=== PATIENT | female | born 2000 | race Caucasian/White ===

== ENCOUNTER 2022-03-06 17:24 | Emergency (ER) | payer OTHER, SELFPAY ==
[2022-03-06 17:26] VITALS: BP 107/74; PULSE 78; RESP 16; TEMP 36.6; O2SAT 99; BMI 19.7
[2022-03-06 18:11] LABS: Color, Urine Yellow (Yellow); Glucose, Dipstick Normal (Normal); Ketone-Dipstick Negative (Negative); Leukocyte Esterase-Dipstick Negative /ul (Negative); Nitrite-Dipstick Negative (Negative); Occult Blood-Urine 250 /ul (Negative); Protein-Dipstick Negative (Negative); Urine Bilirubin Dipstick Negative (Negative); Urine Clarity Clear (Clear); Urine Urobilinogen Normal (Normal)
--- NOTE | 2022-03-06 23:05 | CT_ITS ---
EXAM: CT ABDOMEN AND PELVIS WITHOUT INTRAVENOUS CONTRAST CLINICAL INDICATION: Pain TECHNIQUE: Helically acquired images were obtained of the abdomen and pelvis without intravenous contrast. This CT exam was performed using one or more of the following dose reduction techniques: automated exposure control, adjustment of the mA and/or kV according to patient size, and/or use of iterative reconstruction technique. This report was created using [employer] report generation technology. COMPARISON: None. FINDINGS: LOWER THORAX: Unremarkable. Lung bases are clear. No cardiomegaly. No significant pericardial effusion. ABDOMEN: LIVER: Unremarkable. Homogeneous. GALLBLADDER AND BILE DUCTS: Unremarkable. No calcified gallstones. No gallbladder distention or wall edema. No intra- or extrahepatic biliary ductal dilation. PANCREAS: Unremarkable. No focal cystic mass. SPLEEN: Unremarkable. Normal size without focal cystic or solid mass. ADRENALS: Unremarkable. No nodules. KIDNEYS AND URETERS: Unremarkable. Normal renal size and position. No hydronephrosis. STOMACH AND BOWEL: Unremarkable. No stomach or bowel distention. No focal inflammatory change. PELVIS: APPENDIX: The appendix is normal. BLADDER: Unremarkable. REPRODUCTIVE: Possible left ovarian cyst measuring up to 2.8 cm. ABDOMEN and PELVIS: INTRAPERITONEAL SPACE: Unremarkable. No ascites or other fluid collection. No free air. BONES/JOINTS: Unremarkable. No suspicious lytic or blastic abnormality. SOFT TISSUES: Unremarkable. No discrete abdominal or pelvic wall hernia. VASCULATURE: Unremarkable. Abdominal aorta is non-dilated. LYMPH NODES: Unremarkable. No enlarged lymph nodes. CT/Abdomen/Pelvis without Cont IMPRESSION: Possible left ovarian cyst measuring up to 2.8 cm. Otherwise unremarkable noncontrast CT of the abdomen/pelvis. Electronically Signed: Jj Richardson MD at 0:50 EST ,
[2022-03-06 23:12] LABS: Mucous, Urine 0 SEEN /hpf (<or=2+); Red Blood Cells-Urine 0 SEEN /hpf (0-5)
[2022-03-06] MEDS: 0.9% Normal Saline 1,000 ML 1000 ML IV (23:19)
[2022-03-06] MEDS: Ondansetron 4 MG/2 ML Vial IV (23:19)
[2022-03-06 23:24] VITALS: BP 115/70; PULSE 85; RESP 15; O2SAT 98
[2022-03-06 23:26] LABS: Absolute Neutrophil Count 14.2 X10^3/uL (2.0-7.7); Basophil# 0.04 X10^3/uL; Basophil% 0.2 % (0-1); Eosinophil# 0.02 X10^3/uL; Eosinophils% 0.1 % (0-5); Hematocrit 37.9 % (37-47); Hemoglobin 12.3 g/dL (12.0-15.0); Lymphocyte % 7.6 % (19-41); Mean Corp Hgb Conc 32.5 g/dL (32-36); Mean Corpuscular Hgb 29.7 pg (27.0-32.0); Mean Corpuscular Volume 91.5 fL (81-99); Mean Platelet Vol. 10.2 fl (6.2-12.0); Monocyte# 1.37 X10^3/uL; Monocyte% 8.1 % (0-10); NRBC Flagged by Analyzer 0 % (0-5); Neutrophil # 14.16 X10^3/uL (2.7-7.7); Neutrophil % 83.4 % (47-70); Platelet Count 275 K/mm3 (150-450); RBC Distribution Width CV 12.3 % (11.6-14.6); RBC Distribution Width SD 41.2 fl (35.1-43.9); Red Blood Count 4.14 M/mm3 (4.2-5.4)
[2022-03-06 23:28] LABS: White Blood Cells 0-5 SEEN /hpf (0-5)
[2022-03-06 23:29] LABS: Bacteria RARE /hpf (None Seen); Squamous Epithelial Cells - UA 0-5 SEEN /hpf (5-10)
--- NOTE | 2022-03-06 23:32 | ED.VIS.GI ---
HPI HPI - GI History of Present Illness Chief Complaint: Nausea/Vomiting Informant: patient Abdominal Pain/Flank Pain Onset: Today Context: Sudden Onset Timing: Continuous Quality: Cramping Location: Diffuse Worsened by: Movement and - (Ambulation) Relieved by: Nothing Nausea/Vomiting/Emesis GI Symptom: Positive for Nausea; Negative for Vomiting Diarrhea/Melena/Hematochezia GI Symptom: Negative for Diarrhea, Melena or Hematochezia Associated Symptoms Associated Symptoms: Positive for Dysuria and Frequency Narrative Narrative: Patient presents with abdominal pain that began earlier this morning. Patient states the pain woke her up out of sleep. Patient states it has been constant all day. Patient describes it as cramping. Patient states it started in the lower abdomen and pelvic area. Patient states now it is diffuse. Patient states it is worse with ambulation and with movement. Patient states it is also worse with any coughing or sneezing. Patient admits to nausea but denies any vomiting. Patient denies any diarrhea, melena, or hematochezia. Patient does admit to some dysuria and urinary frequency. Patient states her last menstrual period was approximately 26 days ago. [facility] Medical History Anxiety Home Medications naproxen 500 mg tablet 500 mg PO BID PRN #20 tabs 03/07/22 [Rx Last Taken Unknown] Allergy/AdvReac Type Severity Reaction Status Date / Time No Known Allergies Allergy Verified 03/06/22 17:25 Surgical History no surgical history no surgical history Social History Smoking Status: Never smoker ROS ROS ED Constitutional Constitutional ED: Reports fever(s) and subjective; Denies chills Eyes Eyes: Denies blurry vision or change in vision ENT ENT ED: Denies rhinorrhea or sore throat Cardiovascular Cardiovascular: Reports chest pain; Denies palpitations Respiratory/Chest Respiratory/Chest: Denies cough or dyspnea Gastrointestinal Gastrointestinal: Denies nausea or vomiting Genitourinary Genitourinary ED: Denies dysuria or hematuria Musculoskeletal Musculoskeletal: Reports back pain; Denies neck pain Integumentary Denies abscess or rash Neurologic Neurologic: Denies headache(s) or weakness Allergic/Immunologic Allergic/Immunologic ED: Denies mouth swelling or urticaria EXAM Physical Exam Const Vital Signs: 03/06/22 17:26 03/06/22 23:24 Temperature 97.8 F Temperature Source Temporal Pulse Rate 78 85 Respiratory Rate 16 15 Blood Pressure 107/74 115/70 Blood Pressure Mean 85 85 Pulse Ox 99 98 Oxygen Delivery Method Room Air Room Air Positive well nourished and well developed General Appearance ED: well developed HEENT Reports moist mucous membranes Neck supple and no JVD Resp normal respiratory effort and clear to auscultation bilaterally Cardio regular rate, regular rhythm and no murmurs GI normal to inspection, nondistended, normoactive bowel sounds Palpation: soft and tender epigastric, LLQ, RLQ, LUQ, RUQ, periumbilical and suprapubic; Negative for guarding or rebound tenderness present Extremity normal to inspection General Extremety ED: Negative for edema or tenderness General Extremity: Negative for edema Neuro oriented x3, CN's II-XII intact bilaterally and no sensory deficits noted Sensorium / Orientation: alert Motor Exam: strength 5/5 throughout Psych mental status grossly normal Skin no rashes or lesions noted MDM MDM MDM Narrative Medical decision making narrative: Patient was given IV fluids and Zofran here. CBC was reviewed and does show a leukocytosis of 17.0. Hemoglobin and hematocrit are stable. Comprehensive metabolic profile was obtained and was reviewed. Total bilirubin was slightly elevated at 1.2. Glucose was slightly elevated at 126. The remainder was within normal limits. Urinalysis does not show any evidence of urinary tract infection or hematuria. Serum hCG was obtained and was negative. CT scan of the abdomen pelvis was obtained. There is a 2.8 cm left ovarian cyst. There is no acute abnormality. This was interpreted by the radiologist. I also reviewed the scan and agree with the radiologist. Patient was advised of her findings. Patient was given a prescription for Naprosyn. Patient was instructed to follow-up with her [employer] in 5 to 7 days. Patient understood and was agreeable with the plan. All questions were answered. Lab Data Attestation: I reviewed the patient's lab results. Labs: Laboratory Results - last 24 hr 03/06/22 03/06/22 03/06/22 17:45 23:21 23:21 WBC 17.0 H RBC 4.14 L Hgb 12.3 Hct 37.9 MCV 91.5 MCH 29.7 MCHC 32.5 RDW Std Deviation 41.2 RDW Coeff of Richardson 12.3 Plt Count 275 MPV 10.2 Immature Gran % (Auto) 0.600 Neut % (Auto) 83.4 H Lymph % (Auto) 7.6 L [place] % (Auto) 8.1 Eos % (Auto) 0.1 Baso % (Auto) 0.2 Absolute Neuts (auto) 14.2 H Absolute Lymphs (auto) 1.30 Nucleated RBC % 0 Sodium 137 Potassium 3.6 Chloride 105 Carbon Dioxide 27.0 Anion Gap 5 BUN 9 Creatinine 0.69 Estim Creat Clear Calc 105.31 Est GFR (MDRD) Af Amer 135 Est GFR (MDRD) Non-Af 112 BUN/Creatinine Ratio 13.0 Glucose 126 H Calcium 8.9 Total Bilirubin 1.20 H AST 13 L ALT 15 Alkaline Phosphatase 78 Total Protein 7.0 Albumin 3.6 Globulin 3.4 Albumin/Globulin Ratio 1.1 Serum , Qual Urine Color Yellow Urine Clarity Clear Urine pH 7.0 Ur Specific [place] 1.010 Urine Protein Negative Urine Glucose (UA) Normal Urine Ketones Negative Urine Occult Blood 250 H Urine Nitrite Negative Urine Bilirubin Negative Urine Urobilinogen Normal Ur Leukocyte Esterase Negative Urine RBC 0 SEEN Urine WBC 0-5 SEEN Ur Squamous Epith Cells 0-5 SEEN Urine Bacteria RARE Urine Mucus 0 SEEN 03/06/22 23:21 WBC RBC Hgb Hct MCV MCH MCHC RDW Std Deviation RDW Coeff of Richardson Plt Count MPV Immature Gran % (Auto) Neut % (Auto) Lymph % (Auto) [place] % (Auto) Eos % (Auto) Baso % (Auto) Absolute Neuts (auto) Absolute Lymphs (auto) Nucleated RBC % Sodium Potassium Chloride Carbon Dioxide Anion Gap BUN Creatinine Estim Creat Clear Calc Est GFR (MDRD) Af Amer Est GFR (MDRD) Non-Af BUN/Creatinine Ratio Glucose Calcium Total Bilirubin AST ALT Alkaline Phosphatase Total Protein Albumin Globulin Albumin/Globulin Ratio Serum , Qual NEGATIVE Urine Color Urine Clarity Urine pH Ur Specific [place] Urine Protein Urine Glucose (UA) Urine Ketones Urine Occult Blood Urine Nitrite Urine Bilirubin Urine Urobilinogen Ur Leukocyte Esterase Urine RBC Urine WBC Ur Squamous Epith Cells Urine Bacteria Urine Mucus Radiography Diagnostic Testing: Clinical Impression(s) from Imaging Studies Abdomen/Pelvis CT 03/06/22 23:05 IMPRESSION: Possible left ovarian cyst measuring up to 2.8 cm. Otherwise unremarkable noncontrast CT of the abdomen/pelvis. Electronically Signed: Jj Richardson MD at 0:50 EST , Discharge Plan Triage Chief Complaint: Nausea/Vomiting ED Provider: Sanya Rivers Dx/Rx/DC Orders Clinical Impression: Cyst of left ovary, Abdominal pain Instructions: ED Abdominal Pain Unkn Cause Fem, ED Ovarian Cyst Prescriptions: New naproxen 500 MG tablet 500 mg PO BID PRN Qty: 20 0RF Primary Care Provider: Nakia Hill Referrals: Nakia Hill MD [Primary Care Provider] - 5-7 Days Pavithra Ponce NP, OFFICE ASSOCIATE[facility] [Non-Staff] - 5-7 Days Disposition Disposition: Home, Self Care
[2022-03-06 23:40] LABS: Internal QC Validated? YES +Cl - CLEAR BKGD; Pregnancy, Serum, hCG Quali. NEGATIVE Negative
[2022-03-06 23:43] LABS: ALB/GLOB Ratio 1.1 RATIO (0.9-2.4); AST(SGOT) 13 U/L (15-37); Alanine Aminotransfer ALT/SGPT 15 U/L (13-56); Albumin, Serum 3.6 g/dL (3.2-5.0); Alkaline Phosphatase 78 U/L (45-117); Anion Gap 5 (5-15); BUN 9 mg/dL (7-18); Calcium,Total 8.9 mg/dL (8.5-10.1); Chloride 105 mmol/L (98-107); Creatinine, Serum 0.69 mg/dL (0.55-1.02); EST Glomerular Filtration Rate 112 mL/min (>60); Est Glom Filt Rate - Afr Amer 135 mL/min (>60); Estimated Creatinine Clearance 105.31 ml/min; Globulin 3.4 g/dL (2.2-4.2); Glucose 126 mg/dL (74-106); Potassium 3.6 mmol/L (3.5-5.1); Sodium Level 137 mmol/L (136-145)
== END 2022-03-07 01:19 | disposition home or self-care (01) ==
PROVIDERS: Emergency Provider Emergency Medicine; PCP Family Medicine; Visit Provider Emergency Medicine
DX: N83.202 Unspecified ovarian cyst, left side (principal); R11.2 Nausea with vomiting, unspecified; R73.9 Hyperglycemia, unspecified; R35.0 Frequency of micturition; R30.0 Dysuria
CPT/HCPCS: 74176; 80053; 81001; 81002; 84703; 85025; 96361; 96374; 99283; A4216; J2405

== ENCOUNTER 2023-09-14 15:05 | Inpatient (IN) | payer OTHER, SELFPAY ==
[2023-09-14] VITALS (56 sets, daily range): BP systolic 111–144; BP diastolic 56–95; PULSE 68–112; RESP 16–18; TEMP 36.5–37; O2SAT 97–100; BMI 26.2
[2023-09-14] MEDS: Lactated Ringers 1,000 ML 50 ML IV (15:45)
[2023-09-14 16:08] LABS: Absolute Lymphocyte Count 2.18 X10^3/uL (0.83-4.51); Absolute Neutrophil Count 13.8 X10^3/uL (2.0-7.7); Basophil# 0.07 X10^3/uL; Basophil% 0.4 % (0-1); Eosinophil# 0.06 X10^3/uL; Eosinophils% 0.3 % (0-5); Hematocrit 33.7 % (37-47); Lymphocyte # 2.18 X10^3/ul (0.83-4.51); Lymphocyte % 12.7 % (19-41); Mean Corp Hgb Conc 32.6 g/dL (32-36); Mean Corpuscular Hgb 30.1 pg (27.0-32.0); Mean Corpuscular Volume 92.1 fL (81-99); Mean Platelet Vol. 9.6 fl (6.2-12.0); Monocyte# 0.85 X10^3/uL; Monocyte% 4.9 % (0-10); NRBC Flagged by Analyzer 0 % (0-5); Neutrophil # 13.81 X10^3/uL (2.7-7.7); Neutrophil % 80.4 % (47-70); Platelet Count 367 K/mm3 (150-450); RBC Distribution Width CV 13.9 % (11.6-14.6); RBC Distribution Width SD 46.5 fl (35.1-43.9); Red Blood Count 3.66 M/mm3 (4.2-5.4); White Blood Count 17.2 K/mm3 (4.4-11.0)
[2023-09-14] MEDS: Ondansetron 4 MG/2 ML Vial IV (16:11)
--- NOTE | 2023-09-14 16:14 | HP.PCM.OB_ITS ---
HPI - General General Date of Admission: 09/14/23 HPI Narrative ELISABETH SWARTZ, is a 23 F who presents with contractions. Maternal Data Information CHERYL Calculator Estimated Delivery Date Method Current WG Current Estimate 09/19/23 [facility]d [facility] History Chlamydia infection affecting Depression Anxiety Home Medications ?Medication ?Instructions ?Recorded ?Last Taken ?Type naproxen 500 mg tablet 500 mg PO BID PRN #20 tabs 03/07/22 Unknown Rx escitalopram oxalate 20 mg tablet 20 mg PO DAILY 09/14/23 09/14/23 History (Lexapro) ferrous sulfate 325 mg (65 mg 325 mg PO QODAY 09/14/23 09/14/23 History iron) tablet vit no.95-ferrous 1 tab PO DAILY 09/14/23 09/14/23 History fumarate 28 mg-folic acid 800 mcg tablet () Allergy/AdvReac Type Severity Reaction Status Date / Time No Known Allergies Allergy Verified 09/14/23 15:30 Social History Smoking Status: Never smoker History Elective abortions Hx Para 0 Spontaneous abortions Hx # Term Pregnancies Ectopic pregnancies Hx # Pregnancies Multiple births # of living children NST FHR Rate Baby A Baseline: 125 Variability:: Moderate Accelerations:: 15 x 15 Decelerations:: None Uterine Activity:: Q 3-5 minutes Vital Signs Vital Signs Vital Signs: 09/14/23 12:43 09/14/23 12:43 09/14/23 12:43 Pulse Rate 99 Respiratory Rate 18 Blood Pressure 134/82 H BP Systolic 134 BP Diastolic 82 Weight Weight: 153 lb Body Mass Index (BMI) 26.2 Physical Exam Const alert, oriented x3 and no apparent distress GI soft to palpation, non-tender and non-distended Inspection: gravid external exam normal Narrative: cvx - 5/90/-1, AROM thin meconium fluid Labs Labs Labs: Antibody Screen Pending Hct 33.7 % (37-47) L Hgb 11.0 g/dL (12.0-15.0) L Syphilis Total Ab Pending Assessment & Plan (1) 39 weeks gestation of : COMMENT: @ 39&2 PLAN: Admit to L&D Expectant management Pain - getting epidural GBS negative EFW - less than 4500g, patient with adequate pelvis Routine care
[2023-09-14] MEDS: Lactated Ringers 1,000 ML 999 ML IV (16:15)
[2023-09-14 17:03] LABS: Syphilis Antibodies Non-reactive
[2023-09-14] MEDS: fentaNYL-bupivacaine (epidural) 100 ML BAG EPIDURAL (17:18)
[2023-09-14] MEDS: Lactated Ringers 1,000 ML 200 ML IV (19:52)
[2023-09-14] MEDS: Oxytocin 15 Units/NS 250ml 15 UNITS/250 ML IV.SOLN 334 UNITS IV (22:00)
--- NOTE | 2023-09-14 22:30 | EX.PCM.OBRPT ---
Maternal Data Information CHERYL Calculator Estimated Delivery Date Method Current WG Current Estimate 09/19/23 Manual 39w 2d Vaginal Delivery Maternal Presentation Maternal Presentation: Active Labor Operative Information Date of Procedure: 09/14/23 Pre-Operative Diagnosis: Labor Post-Operative Diagnosis: Labor Surgery / Procedure Performed: Spontaneous Vaginal Delivery Type of Anesthesia: Epidural Estimated Blood Loss: 300ml Findings Description of Procedure: Patient prepped & draped when C/C/+2. She pushed well to deliver the head. head gently guided to allow delivery of anterior and posterior shoulders. No excess traction placed on head. Body delivered and 3VC clamped & cut in delayed fashion. Placenta delivered with gentle traction and good uterine tone obtained. Presentation: [place] Amniotic Membrane Rupture Type: Artificial Amniotic Fluid Description: Lightly stained meconium Placental Delivery Description: Expressed Placenta Disposition: [facility] Specimen(s) Removed: Placenta Cord Vessel Description: 3 Vessels Cord Entanglement: None A Gender: Male (1 minute): 8 (5 minute): 9 Delayed Cord Clamping: Yes Post Vaginal Delivery Medications Given After Delivery: IV Pitocin Episiotomy Description: None Laceration: 2nd degree (perineal & 1st degree bilateral vaginal lacerations - repaired with 3-0 vicryl) Complication Complications: None
[2023-09-14] MEDS: Oxytocin 15 Units/NS 250ml 15 UNITS/250 ML IV.SOLN 83 UNITS IV (22:31)
[2023-09-15] MEDS: Ibuprofen 600 MG Tablet PO ×3 (00:13→16:58)
[2023-09-15 00:32] VITALS: BP 118/66; PULSE 89; RESP 16; TEMP 37; O2SAT 99
[2023-09-15 04:01] VITALS: BP 110/70; PULSE 86; RESP 16; O2SAT 98
[2023-09-15 07:25] VITALS: BP 117/73; PULSE 87; RESP 16; TEMP 37.1; O2SAT 99
[2023-09-15] MEDS: Escitalopram Oxalate 20 MG Tablet PO (07:34)
[2023-09-15] MEDS: Acetaminophen 500 MG Tablet 1000 MG PO (07:34)
--- NOTE | 2023-09-15 08:50 | PN.OBGYN_ITS ---
Subjective Subjective Patient seen at bedside. Resting quietly. Baby in SCN. Pumping and taking to SCN. Ambulating and voiding without difficulty. Lochia is minimal. Denies pain. Objective Data Objective Data Vital Signs: Vital Signs Temp Pulse Resp BP Pulse Ox O2 Del Method 98.7 F 87 16 117/73 99 Room Air 09/15/23 07:25 09/15/23 07:25 09/15/23 07:25 09/15/23 07:25 09/15/23 07:25 09/15/23 07:25 Oxygen Delivery Method Room Air Weight: 153 lb Body Mass Index (BMI) 26.2 Intake & Output: Intake and Output for Last 24 Hours 09/13/23 09/14/23 09/15/23 23:59 23:59 23:59 Intake Total 2140.91 / 2140.91 250 / 250 Output Total 600 / 600 150 / 150 Balance 1540.91 / 1540.91 100 / 100 Lab / Micro Data 09/14/23 15:45 Labs: Laboratory Results - last 24 hr 09/14/23 15:45: WBC 17.2 H, RBC 3.66 L, Hgb 11.0 L, Hct 33.7 L, MCV 92.1, MCH 30.1, MCHC 32.6, RDW Std Deviation 46.5 H, RDW Coeff of Richardson 13.9, Plt Count 367, MPV 9.6, Immature Gran % (Auto) 1.300 H, Neut % (Auto) 80.4 H, Lymph % (Auto) 12.7 L, [place] % (Auto) 4.9, Eos % (Auto) 0.3, Baso % (Auto) 0.4, Absolute Neuts (auto) 13.8 H, Absolute Lymphs (auto) 2.18, Nucleated RBC % 0, Syphilis Total Ab Non-reactive, Blood Type A POSITIVE, Antibody Screen NEGATIVE ROS Eyes Eyes: Denies blurry vision, change in vision or spots in vision ENT HEENT: Denies dizziness or headache(s) Cardiovascular Cardiovascular: Denies abdominal pain, chest pain or dyspnea Respiratory/Chest Respiratory/Chest: Denies cough, dyspnea, shortness of breath at rest or shortness of breath with exertion Gastrointestinal Gastrointestinal: Denies abdominal pain, diarrhea or vomiting Genitourinary Genitourinary: Denies change in urinary stream, difficulty urinating or dysuria Musculoskeletal Musculoskeletal: Reports none Integumentary Integumentary: Denies rash Neurologic Neurologic: Denies dizziness, headache(s), memory loss or weakness Physical Exam Const alert and no apparent distress General Appearance: cooperative and comfortable Exam Limitations: no limitations HEENT normocephalic Eyes General Eye: normal appearance of both eyes Neck full ROM General: normal visual inspection Chest Chest: symmetrical chest wall rise Resp normal respiratory effort and normal air movement Effort and Inspection: symmetric chest movement Auscultation: clear to auscultation bilaterally Cardio regular rate and regular rhythm GI normal to inspection, nondistended, normoactive bowel sounds Back/Spine normal ROM Extremity full ROM and no calf tenderness General Extremity: normal exam except as noted Skin no rashes or lesions noted Neuro CN's II-XII intact bilaterally Psych mental status grossly normal Assessment & Plan (1) (spontaneous vaginal delivery): (2) Care and examination of lactating mother: (3) Anxiety: COMMENT: Pt takes lexapro 20 mg. (4) Depression: PLAN: Plan PPD 1 Pain control support Anticipate discharge home tomorrow
[2023-09-15 13:55] VITALS: BP 115/70; PULSE 82; RESP 16; TEMP 36.8; O2SAT 98
[2023-09-15 15:55] VITALS: BP 108/57; PULSE 72; RESP 16; TEMP 36.8; O2SAT 99
[2023-09-15 19:40] VITALS: BP 117/64; PULSE 77; RESP 16; TEMP 36.7; O2SAT 98
[2023-09-16 03:27] VITALS: BP 129/77; PULSE 77; RESP 16; TEMP 36.4; O2SAT 99
--- NOTE | 2023-09-16 07:58 | PCM.PN.OB ---
Subjective Subjective Patient is doing well and offers no complaints this morning. She is ambulating and voiding without difficulty. Tolerating a diet without nausea or vomiting. Pain is well-controlled. Lochia is normal. She denies chest pain, shortness of breath, lightheadedness, leg pain. Objective Data Objective Data Vital Signs: Vital Signs Temp Pulse Resp BP Pulse Ox O2 Del Method 97.6 F L 77 16 129/77 H 99 Room Air 09/16/23 03:27 09/16/23 03:27 09/16/23 03:27 09/16/23 03:27 09/16/23 03:27 09/16/23 03:27 Oxygen Delivery Method Room Air Weight: 153 lb Body Mass Index (BMI) 26.2 Intake & Output: Intake and Output for Last 24 Hours 09/14/23 09/15/23 09/16/23 23:59 23:59 23:59 Intake Total 2140.91 / 2140.91 250 / 250 Output Total 600 / 600 450 / 450 Balance 1540.91 / 1540.91 -200 / -200 Lab / Micro Data 09/14/23 15:45 Physical Exam Const alert and no apparent distress General Appearance: comfortable HEENT normocephalic Resp normal respiratory effort GI soft to palpation, non-tender and non-distended GI Narrative: FF@U-2 Extremity normal to inspection and no calf tenderness Assessment & Plan (1) Anxiety: COMMENT: Pt takes lexapro 20 mg. (2) Depression: (3) Care and examination of lactating mother: (4) (spontaneous vaginal delivery): PLAN: PPD#2 s/p . Doing well and desires discharge home. Discharge instructions reviewed.
--- NOTE | 2023-09-16 08:05 | DCINST_ITS ---
Discharge Instructions Diet Discharge Diet: No restrictions Activity Discharge Activity: May Drive and May Shower May resume sexual activity in: 6 weeks Ice area for (Minutes): 15 Weight Bearing Status: Weight bearing as tolerated Lifting Restrictions: nothing heavier than baby Dressing / Incision Call your doctor if you observe: Fever of 101 or Higher, Coldness, Increased Pain, Numbness or Tingling, Change in Color, Inability to urinate, Inability to have a bowel movement, Using more than 1 pad per hour, Shortness of breath, Dizziness, Fainting spells, Swelling in the ankles, Chest pain, Prolonged hiccupping, Increased palpitations (irregular heartbeat), Calf discomfort and Uncontrolled pain Cleanse incision/area with: Soap & Water Follow Up Care Please Follow Up With: Charis Oakes MD When: 1-2 weeks early visit 6 weeks for exam Test Results: Test results from this visit will be discussed in further detail at your follow- up appointment, if applicable. Discharge Plan Admission Admit Date/Time: 09/14/23 15:05 Primary Reason for Your Visit: delivery Attending Provider: Charis Oakes Primary Care Provider: Nakia Hill Instructions Patient Instructions: After a Vaginal Discharge Orders/Prescriptions Prescriptions: Continued PNV cmb#95-ferrous fumarate-FA [] 28 mg iron- 800 mcg tablet 1 tab PO DAILY escitalopram oxalate [Lexapro] 20 mg tablet 20 mg PO DAILY Discontinued naproxen 500 MG tablet 500 mg PO BID PRN Qty: 20 0RF ferrous sulfate 325 mg (65 mg iron) tablet 325 mg PO QODAY Referrals / Follow Up: Nakia Hill MD [Primary Care Provider] - Disposition Disposition (needs filled in before D/C Order can be placed): Home, Self Care
[2023-09-16] MEDS: Ibuprofen 600 MG Tablet PO (09:05)
[2023-09-16] MEDS: Escitalopram Oxalate 20 MG Tablet PO (09:06)
[2023-09-16 10:00] VITALS: BP 102/64; PULSE 83; RESP 16; TEMP 36.2; O2SAT 99
--- NOTE | 2023-09-16 15:10 | CASEMGMT ---
Social Work Assessment Labor and Delivery Unit Patient Address: [address] [place] [address] [address] [place] [address] Phone number: [phone] Date of Referral: 09/15/23 Time of Referral:? 18 Referred By: Dr. Oakes Date of Intervention: ??09/16/23 Time of Intervention:? 513 Reason for Referral:? anxiety and depression Sw completed chart review and acknowledges social work consult due to maternal history of anxiety and depression. Sw presented to bedside and introduced self to mother of baby (MOB- Kalee) and father of baby (FOB- Edy). Sw explained sw role during hospitalization and completed psychosocial assessment. History obtained from: medical records, MOB and FOB Household composition: Currently residing in the family home is MOB, FOB and baby to be added to residence when ready for discharge. Patient's parent/guardian status:? ?Parents report that they have been in a relationship for 7 years. They have known each other since elementary school. No issues or concerns reported of domestic violence or intimate partner violence. Medical History: ?JOSE is 23 year old female who is 1, para 0- now 1 following labor and delivery of . JOSE received routine care during with [facility]. JOSE presented to hospital and delivered baby via vaginal delivery at 39 weeks gestation on 09/14/23. Baby boy, named Jose Guadalupe, was born weighing 9lb 8oz with apgars of 8 and 9 at one and five minutes of life, respectfully. Following delivery baby required admission to [facility] Nurs[facility] due to respiratory distress. Parents report that baby has made medical progress towards identified medical goals and may be eligible for discharge today. JOSE states that she is still working on breast feeding and that baby will be followed by Dr. Melanie Marie for pediatrics. Educational Status:? Both parents graduated from high school. JOSE reports to needing an IEP to help with reading and comprehension. JOSE states that she learns best with hands on opportunities. Financial Status: Both parents are gainfully employed outside of the home. 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 Infant Supplies:?? Parents have obtained all necessary baby supplies, including: car seat, safe sleep space, clothes, diapers and wipes. Childcare/Caregiver(s):? MOB will be the primary caregiver to baby along with FOB when he is not working. When both parents return to work they have family and friends who are able to watch baby for them. Transportation:?? No barriers. Programs/Agencies Involved: ???JOSE states that she is temporarily connected to [facility] during her , however LIDIA just got a raise and they may now be over income. Josi encouraged JOSE to stay connected and to touch base with the worker to ensure that she may still be able to receive services. Children Services/Legal Issues:??? No history of involvement, no issues or concerns warranting referral to be made. Behavioral Health Issues: ??Mental Health History: LIDIA denies mental health diagnoses. JOSE states that she has been diagnosed with anxiety and depression and is currently prescribed Lexapro through her primary care doctor. JOSE states that her mental health is a product of generational mental health issues. ??MOB states that she had a difficult childhood that significantly impacted her mental health. MOB states that the Lexapro helps her feel like herself and keeps her symptoms manageable. JOSE states that if she feels like she is struggling she has people she is able to talk to and knows how to utilize healthy coping skills. ? Substance Use History:??Parents deny substance use prior to and during . Family History:??Parents deny family history of addiction/ substance use disorder ??? Drug Screens: ??NO drug screens observed in chart review. Family/Social Stressors:?JOSE states that the biggest stressor at this time is LIDIA's mother who is very bossy and wants to control everything. JOSE states that she does not want her mother in law to show up either at the hospital or unexpectedly. LIDIA stated that he knows this is an ongoing problem along with other issues caused by his mother. Support Systems: JOSE states that her parents are her biggest supports. Depression/Shaken Baby/Safe Sleeping:? Josi educated parents to signs and symptoms of baby blues and mood and anxiety disorders to be on the lookout for. JOSE stated that she is familiar with the terms and appreciated a break down of symptoms. JOSE states that she feels comfortable talking to LIDIA and her family about any struggles that she may be experiencing. Parents report that although baby has been admitted to Special Care, this has not caused them a ton of anxiety, knowing that he is getting the medical care that he needs. Josi educated parents to never shake a baby and remember the ABCs of safe sleep. Parents express understanding. ASSESSMENT:? MOB recently discharged from labor and delivery following a vaginal delivery of baby at 39 weeks gestation. Baby required transfer to Special Care Nursery due to respiratory distress, but is making progress and may be ready for discharge. MOB with mental health history positive for anxiety and depression, which she manages with lexapro prescribed by her primary care doctor. MOB states that she has friends and family members who are supportive along with FOB. Parents have obtained all necessary baby supplies and are eager for him to be medically ready for discharge from special care. PLAN:? MOB and baby to be discharged when medically ready. ?No other services requested or indicated. Be Kerns, JEWEL DIAMETER GAUGER, CURRENCY EXCHANGE SPECIALIST
== END 2023-09-16 12:20 | disposition home or self-care (01) | DRG 807 ==
LOC: WPOUT 15:30 → WP 15:30
PROVIDERS: Admitting Provider Obstetrics & Gynecology; PCP Family Medicine; Referring Provider Obstetrics & Gynecology; Visit Provider Obstetrics & Gynecology
DX: O77.0 Labor and delivery complicated by meconium in amniotic fluid (principal); Z37.0 Single live birth; O99.344 Other mental disorders complicating childbirth; F32.A Depression, unspecified; F41.9 Anxiety disorder, unspecified; O70.1 Second degree perineal laceration during delivery; Z3A.39 39 weeks gestation of pregnancy; Z79.899 Other long term (current) drug therapy
CPT/HCPCS: 59050; 85025; 86780; 86850; 86900; 86901; 99221; J7120; G0378; J2405